=== PATIENT | male | born 1990 | race Caucasian/White ===

== ENCOUNTER 2018-07-15 00:26 | Emergency (ER) | payer BC ==
[~2018-07-15] VITALS: Ht 165.1 cm; Wt 81.2 kg
[2018-07-15] MEDS ORDERED: VALS160T2 PO (00:42)
[2018-07-15] MEDS ORDERED: ALPR2TAB2 PO (00:42)
[2018-07-15] MEDS ORDERED: AMPH20CA3 PO (00:42)
[2018-07-15] MEDS ORDERED: PSEUDOEPHEDRINE HCL 30 MG TABLET PO ONE (01:00)
[2018-07-15] MEDS ORDERED: HYDROCODONE/APAP 5-325MG TABLET PO ONE (01:00)
--- NOTE | 2018-07-15 01:03 | NUR ---
US TECH AT BEDSIDE
[2018-07-15] MEDS ORDERED: HYDROCODONE/APAP 5-325MG TABLET ONE (01:07)
[2018-07-15] MEDS ORDERED: PSEUDOEPHEDRINE HCL 30 MG TABLET ONE (01:08)
[2018-07-15] MEDS ORDERED: IV NORMAL SALINE 1000 ML BAG IV ONE (01:15)
[2018-07-15 01:16] LABS: *BILIRUBIN,URIN NEGATIVE (NEGATIVE); *BLOOD, URINE NEGATIVE (NEGATIVE); *CLARITY,URINE CLEAR (CLEAR); *COLOR,URINE YELLOW (YELLOW); *KETONES,URINE NEGATIVE (NEGATIVE); *PROTEIN,URINE NEGATIVE (NEGATIVE); *UROBILINOGEN,URINE 0.2 E.U./dl (NORMAL); LEUKOCYTE ESTERASE ,URINE NEGATIVE (NEGATIVE); NITRITE, URINE NEGATIVE (NEGATIVE); UGLUCOSE NEGATIVE (NEGATIVE)
[2018-07-15 01:28] LABS: BACTERIA,URINE NONE SEEN /HPF (NONE SEEN); RBC,URINE NONE SEEN /HPF (0-3); SQUAMOUS EPITHELIAL CELL,UR FEW /HPF (NONE SEEN); WBC,URINE 0-3 /HPF (0-3)
[2018-07-15] MEDS ORDERED: KETOROLAC TROMETHAMINE 30 MG INJ ONE (01:41)
[2018-07-15] MEDS ORDERED: KETOROLAC TROMETHAMINE 30 MG INJ IVP ONE (01:45)
--- NOTE | 2018-07-15 02:07 | NUR ---
Patient discharged to home in stable conditon. Written and verbal after care instructions given. Patient verbalizes understanding of instructions. Patient made aware no narcotics will be prescribed per DR Brown at this time due to multiple rx on [facility].
[2018-07-15 02:11] VITALS: BP 144/86
== END 2018-07-15 02:11 | disposition home or self-care (01) ==
LOC: ER 00:29
DX: J40 Bronchitis, not specified as acute or chronic (principal); J32.9 Chronic sinusitis, unspecified; Z88.8 Allergy status to other drugs, medicaments and biological substances
CPT/HCPCS: 76870; A4663; J1885; J7030

== ENCOUNTER 2019-09-19 03:10 | Emergency (ER) | payer SELFPAY ==
[~2019-09-19] VITALS: Ht 165.1 cm; Wt 81.6 kg
[~2019-09-19 03:10] MED LIST: ALPR2TAB2 PO; AMPH20CA3 PO; VALS160T2 PO
--- NOTE | 2019-09-19 03:13 | NUR ---
Dr. Main at bedside for MSE.
[2019-09-19] MEDS ORDERED: HYDROMORPHONE 1 MG/1 ML DISP.SYRIN IM ONE (03:15)
[2019-09-19] MEDS ORDERED: ONDANSETRON 4 MG/2 ML VIAL IM ONE (03:15)
[2019-09-19] MEDS ORDERED: HYDROMORPHONE 2 MG/1 ML DISP.SYRIN ONE (03:17)
[2019-09-19] MEDS ORDERED: ONDANSETRON 4 MG/2 ML VIAL ONE (03:18)
--- NOTE | 2019-09-19 03:36 | NUR ---
Ultrasound at bedside.
[2019-09-19] MEDS ORDERED: OXYCODONE/APAP 5-325 MG TABLET ONE (04:08)
[2019-09-19] MEDS ORDERED: OXYCODONE/APAP 5-325 MG TABLET PO ONE (04:15)
--- NOTE | 2019-09-19 07:03 | NUR ---
Patient discharged to home in stable conditon. Written and verbal after care instructions given. Patient verbalizes understanding of instructions. Pt ambulated out of ER with steady gait, no acute signs of distress, VSS, all belongings taken.
[2019-09-19 07:05] VITALS: BP 119/61
== END 2019-09-19 07:05 | disposition home or self-care (01) ==
LOC: ER 03:15
DX: N45.1 Epididymitis (principal); F41.9 Anxiety disorder, unspecified; Z88.8 Allergy status to other drugs, medicaments and biological substances; Z79.899 Other long term (current) drug therapy
CPT/HCPCS: 76870; 96372 ×2; 99284; J1170; J2405; A4663

== ENCOUNTER 2019-09-29 02:34 | Emergency (ER) | payer BC ==
[~2019-09-29] VITALS: Ht 165.1 cm; Wt 85.3 kg
--- NOTE | 2019-09-29 03:00 | NUR ---
Dr. Brown on bedside for MSE.
[2019-09-29] MEDS ORDERED: CEFTRIAXONE 500 MG VIAL ONE (03:15)
[2019-09-29] MEDS ORDERED: CEFTRIAXONE 500 MG VIAL IM ONE (03:15)
[2019-09-29] MEDS ORDERED: KETOROLAC TROMETHAMINE 30 MG INJ ONE (03:15)
[2019-09-29] MEDS ORDERED: KETOROLAC TROMETHAMINE 30 MG INJ IM ONE (03:15)
[2019-09-29] MEDS ORDERED: LIDOCAINE HCL 1% 20 ML VIAL ONE (03:16)
--- NOTE | 2019-09-29 03:30 | NUR ---
Patient discharged to home in stable conditon. Written and verbal after care instructions given. Patient verbalizes understanding of instructions. Pt ambulated out of the ER with steady gait. All belongings with pt.
[2019-09-29 03:31] VITALS: BP 130/90
[2019-09-29 03:43] LABS: *BILIRUBIN,URIN NEGATIVE (NEGATIVE); *BLOOD, URINE NEGATIVE (NEGATIVE); *KETONES,URINE NEGATIVE (NEGATIVE); *UROBILINOGEN,URINE 0.2 E.U./dl (NORMAL); LEUKOCYTE ESTERASE ,URINE NEGATIVE (NEGATIVE); NITRITE, URINE NEGATIVE (NEGATIVE); UGLUCOSE NEGATIVE (NEGATIVE)
[2019-09-29 03:44] LABS: *CLARITY,URINE HAZY (CLEAR); *COLOR,URINE YELLOW (YELLOW)
[2019-09-29 03:51] LABS: BACTERIA,URINE NONE SEEN /HPF (NONE SEEN); RBC,URINE NONE SEEN /HPF (0-3); SQUAMOUS EPITHELIAL CELL,UR NONE SEEN /HPF (NONE SEEN); URINE AMORPHOUS URATE MANY /HPF; WBC,URINE NONE SEEN /HPF (0-3)
[2019-10-01 02:09] LABS: *GC NAA Negative (Negative); *TRIC.VAG. NAA Negative (Negative)
== END 2019-09-29 03:30 | disposition home or self-care (01) ==
LOC: ER 02:38
DX: N45.1 Epididymitis (principal); F41.9 Anxiety disorder, unspecified; Z88.8 Allergy status to other drugs, medicaments and biological substances; Z79.899 Other long term (current) drug therapy
CPT/HCPCS: 81000; 81001; 87491; 96372 ×2; 99283; J0696; J1885; J3490; A4663

== ENCOUNTER 2019-11-04 04:14 | Emergency (ER) | END 2019-11-04 06:07 | disposition home or self-care (01) | DX: N45.1 Epididymitis (principal); F41.9 Anxiety disorder, unspecified; Z88.8 Allergy status to other drugs, medicaments and biological substances; Z79.899 Other long term (current) drug therapy | CPT/HCPCS: 96372; 99283; J1885 ==